=== PATIENT | male | born 1970 | race African-American/Black ===

== ENCOUNTER 2021-05-08 08:32 | Emergency (ER) | payer SELFPAY ==
[2021-05-08] MEDS ORDERED: Acetaminophen 500 MG TAB ONE (09:02)
[2021-05-08 19:37] LABS: SARS-CoV-2 PCR by NAA DETECTED (NotDetected)
== END 2021-05-08 10:04 | disposition home or self-care (01) ==
LOC: ERS 08:32
DX: U07.1 COVID-19 (principal); I10 Essential (primary) hypertension; Z87.891 Personal history of nicotine dependence
CPT/HCPCS: 71045; 87804; U0003; U0005